=== PATIENT | female | born 1985 | race Caucasian/White ===

== ENCOUNTER 2016-12-28 17:26 | Emergency (ER) | payer BC ==
[~2016-12-28] VITALS: Ht 167.6 cm; Wt 71.7 kg
[~2016-12-28 17:26] MED LIST: BENTYL20 MG PO; CHLORHEXIDINE 0.12%; CLARITIN10 MG OR; CLEOCIN GENERI150 MG; CYMBALTA30 MG PO; HYCODAN 1.5 MG480 ML PO; KEFLEX 500MG.500 MG PO; LEXAPRO5 MG PO; LORTAB 5/500 501 TAB PO; MAXALT10 MG PO; MEDROL 4MG. DOSE4 MG PO; NORTRIPTYLINE H10 M1 PO; ORTHO TRI-CYCLE1 TA1 PO; PREDNISONE 20MG20 MG; PROAIR HFA INH; PROZAC 20MG CAP20 MG PO; RISPERDAL 1 MG T1 MG PO; SALMETEROL-F28 PUFFS IN; TOPAMAX100 MG PO; TYLENOL W/CODEI1 TA2 PO; VIBRAMYCIN HYC100 MG PO; ZITHROMAX Z PA250 MG PO; ZONISAMIDE50 MG PO; ZYRTEC10 M3 PO; [UNRECOGNIZED DRUG - OTHER] PO
[2016-12-28] MEDS ORDERED: WELLBUTRIN XL300 MG PO (18:34)
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
[2016-12-28 19:38] VITALS: BP 113/78
--- NOTE | 2016-12-29 05:54 | RADIOLOGY REPORT PS360 ---
KNEE-3 VIEWS-RT HISTORY: INJURY ORDERING PHYSICIAN: INNA GARZA APRN PATIENT AGE: 31 years COMPARISON: None FINDINGS: No fracture or dislocation. No lytic or blastic change. Normal mineralization. No significant arthritic changes evident. No other significant findings IMPRESSION: Negative Knee
== END 2016-12-28 19:39 | disposition home or self-care (01) ==
LOC: UTC 17:26
DX: S83.91XA Sprain of unspecified site of right knee, initial encounter (principal); V18.0XXA Pedal cycle driver injured in noncollision transport accident in nontraffic accident, initial encounter; Y92.89 Other specified places as the place of occurrence of the external cause